=== PATIENT | female | born 1980 | race Caucasian/White ===

== ENCOUNTER 2017-01-29 15:29 | Emergency (ER) | payer OTHER ==
[~2017-01-29] VITALS: Ht 152.4 cm; Wt 103.6 kg
[2017-01-29 17:37] VITALS: BP 129/79
== END 2017-01-29 17:37 | disposition home or self-care (01) ==
LOC: ED 15:29
DX: S93.401A Sprain of unspecified ligament of right ankle, initial encounter (principal); E66.9 Obesity, unspecified; S93.691A Other sprain of right foot, initial encounter; G89.29 Other chronic pain; M54.9 Dorsalgia, unspecified; W18.09XA Striking against other object with subsequent fall, initial encounter; Y93.89 Activity, other specified; Y99.8 Other external cause status; Y92.89 Other specified places as the place of occurrence of the external cause

== ENCOUNTER 2017-05-17 01:32 | Emergency (ER) | payer OTHER ==
[2017-05-17 01:37] VITALS: BP 131/87
[2017-05-17 02:37] LABS: CALCIUM 8.6 mg/dL (8.5-10.1); CARBON DIOXIDE 24.9 mmol/L (21-32); CHLORIDE SERUM 105 mmol/L (98-107); CREATININE SERUM 0.9 mg/dL (0.6-1.0); GFR1 > 60 mL/min; GLUCOSE SERUM 101 mg/dL (74-106); POTASSIUM SERUM 3.4 mmol/L (3.5-5.1); SODIUM SERUM 138 mmol/L (136-145)
[2017-05-17 02:39] LABS: PLATELET COUNT 205 x10^3mcL (130-400); RED CELL DISTRIBUTION WIDTH 13.1 % (11.5-14.5)
[2017-05-17 02:41] LABS: ALBUMIN 3.5 g/dL (3.4-5.0); ALKALINE PHOSPHATASE 72 U/L (46-116); ALT/SGPT 32 U/L (14-59); AMYLASE 45 U/L (25-115); AST/SGOT 10 U/L (15-37); BILIRUBIN TOTAL 0.38 mg/dL (0.20-1.00); LIPASE 157 IU/L (73-393); TOTAL PROTEIN, SERUM 7.6 g/dL (6.4-8.2)
[2017-05-17 02:44] LABS: BASOPHIL % 2.5 % (0-2)
== END 2017-05-17 03:27 | disposition home or self-care (01) ==
LOC: ED 01:32
PROVIDERS: Emergency Medicine
DX: K80.00 Calculus of gallbladder with acute cholecystitis without obstruction (principal); E66.9 Obesity, unspecified
CPT/HCPCS: 36415; 83880; J3010; Q0162

== ENCOUNTER 2019-03-05 08:46 | Emergency (ER) | payer OTHER ==
[~2019-03-05] VITALS: Ht 152.4 cm; Wt 101.6 kg
[2019-03-05 09:05] VITALS: Ht 152.4 cm; Wt 101.6 kg
[2019-03-05 13:16] VITALS: BP 110/75
== END 2019-03-05 13:16 | disposition home or self-care (01) ==
LOC: ED 08:46
DX: J18.9 Pneumonia, unspecified organism (principal); F41.9 Anxiety disorder, unspecified; G89.29 Other chronic pain; M54.9 Dorsalgia, unspecified
CPT/HCPCS: J7613; J7644